=== PATIENT | female | born 1960 ===

== ENCOUNTER → 2017-02-01 | Outpatient (CLI) | payer BC ==
[2017-02-05 02:41] LABS: CHLAMYDIA TRACH RNA*** NOT DETECTED (NOT DETECTED); GC (NEIS GONORRHOEAE)RNA** NOT DETECTED (NOT DETECTED); TRICHOMONAS VAGINALIS RNA** NOT DETECTED (NOT DETECTED)
== END | disposition home or self-care (01) ==
LOC: MERGE 13:26 → C.LABSPEC 13:26
PROVIDERS: ATTEND Obstetrics & Gynecology
DX: Z11.3 Encounter for screening for infections with a predominantly sexual mode of transmission (principal)

== ENCOUNTER → 2017-02-15 | Outpatient (CLI) | payer BC ==
--- NOTE | 2017-02-15 15:38 | MAMMOGRAPHY REPORT ---
BILATERAL DIGITAL DIAGNOSTIC MAMMOGRAM WITH CAD AND TARGETED BILATERAL ULTRASOUND: 02/15/2017 CLINICAL HISTORY: The patient has bilateral breast implants which were placed in 1998. She was told at that time by her surgeon that she should not have mammograms due to the risk of rupture, so the pa sully presents for screening bilateral breast ultrasound. The patient denies any current complaints. TECHNIQUE: Current study was also evaluated with a Computer Aided Detection (CAD) system. Bilateral CC and MLO views including implant displaced views were obtained. COMPARISON: No prior exams were available for comparison. BREAST COMPOSITION: There are scattered areas of fibroglandular density in both breasts. FINDINGS: First, ultrasound was performed of bilateral breasts including all 4 quadrants and subareo lar regions. In the left breast at 6:00, 3 cm from the nipple, there is an oval slightly hypoechoic circumscribed 3 x 1 x 5 mm mass. In the radial plane this appears similar to adjacent normal fat lob ules and likely represents a prominent fat lobule. The remainder of both breasts demonstrate no susp icious masses or other suspicious sonographic abnormalities. Bilateral saline implants are present. After discussion with the patient that the risk of implant rupture with mammograms is low and given t hat sometimes suspicious findings such as calcifications or architectural distortion can only be seen mammographically and not on ultrasound, the decision was made to proceed with bilateral mammograms. There are no suspicious masses, calcifications, or areas of architectural distortion seen mammograph ically. Bilateral subpectoral saline implants appear intact. IMPRESSION: ACR-BI-RADS CATEGORY 3: PROBABLY BENIGN, TARGETED ULTRASOUND ACR-BI-RADS CATEGORY 3: PRO BABLY BENIGN Small hypoechoic circumscribed 5 mm mass in the left 6:00 breast on ultrasound, which is probably chad ign and likely represents a normal fat lobule. Recommend follow-up ultrasound of the left breast in 6 months to confirm stability, given that this is newly visualized on imaging. The remainder of both breasts are negative mammographically and sonographically. The patient has been verbally notified of the results. Approximately 10% of breast cancers are not detected with mammography. A negative mammographic report should not delay biopsy if a clinically suggestive mass is present. Jayde Junior M.D. ah/:02/15/2017 12:06:59 Hand I Thermal Cutter: Tata MORFIN)(Alyssa), [facility] letter sent: Follow Up Recommended 3 BI-RADS Code: ACR-BI-RADS Category 3: Probably Benign Ultrasound BI-RADS: ACR-BI-RADS Category 3: Pr obably Benign
== END | disposition home or self-care (01) ==
LOC: C.MAMM 10:48 → MERGE 11:15
PROVIDERS: ATTEND Obstetrics & Gynecology
DX: N63.20 Unspecified lump in the left breast, unspecified quadrant (principal)

== ENCOUNTER → 2017-08-16 | Outpatient (CLI) | payer BC ==
--- NOTE | 2017-08-19 07:44 | MAMMOGRAPHY REPORT ---
ULTRASOUND OF LEFT BREAST: 08/16/2017 CLINICAL HISTORY: Short interval follow-up of left breast mass seen during screening ultrasound. The patient reports no new lumps or other complaints. COMPARISON: Comparison is made to exams dated: 02/15/2017 mammogram and 02/15/2017 ultrasound - [facility]. TECHNIQUE: Real-time targeted ultrasound of the left breast was performed. FINDINGS: Real-time, high-resolution targeted ultrasound was performed of the area of the previously seen mass for which follow-up was recommended. In the left 6:00 breast, 3 cm from the nipple, again noted is an isoechoic circumscribed oval parallel mass which measures 4 x 2 x 5 mm. The mass is stab le in size and appearance compared to the February 2017 exam and during real-time scanning has the ap pearance of a normal fat lobule. Given the stability and benign morphology, the mass is considered b enign. IMPRESSION: ACR BI-RADS CATEGORY 2: BENIGN Isoechoic 5 mm mass in the left 6:00 breast is stable compared to the February 2017 ultrasound exam, and is benign and compatible with a normal fat lobule. There is no sonographic evidence of malignanc y. Return to annual mammogram screening schedule is recommended, due February 2018. The patient was verbally notified of the results. Jayde Junior M.D. /:08/16/2017 10:57:49 Sr. Social Media & Mobile Manager: Jayde Junior MD, [facility] letter sent: Normal 1/2 BI-RADS Code: ACR BI-RADS Category 2: Benign
== END | disposition home or self-care (01) ==
LOC: C.MAMM 10:36
PROVIDERS: ATTEND Obstetrics & Gynecology
DX: N63.20 Unspecified lump in the left breast, unspecified quadrant (principal)